=== PATIENT | male | born 1970 | race African-American/Black ===

== ENCOUNTER 2023-11-21 23:48 | Emergency (ER) | payer SELFPAY ==
[~2023-11-21] VITALS: Ht 185.4 cm; Wt 87.0 kg
[2023-11-22 00:33] LABS: BASOPHILS % 0.6 % (0.0-2.0); EOSINOPHILS % 1.4 % (0.0-5.0); HEMATOCRIT. 35.4 % (42.0-52.0); HEMOGLOBIN. 12.2 g/dL (14.0-18.0); LYMPHOCYTES % 31.3 % (20.0-50.0); MEAN CORPUSCULAR HEMOGLOBIN 32.7 pg (28.0-32.0); MEAN CORPUSCULAR HGB CONC 34.5 g/dL (31.0-37.0); MEAN CORPUSCULAR VOLUME 94.8 fL (80.0-94.0); MEAN PLATELET VOLUME 7.2 fl (7.4-10.4); MONOCYTES % 7.1 % (2.0-8.0); NEUTROPHILS % 59.6 % (40.0-76.0); PLATELET 290 x1000/uL (130-400); RED BLOOD CELL COUNT 3.73 mill/uL (4.7-6.1); RED CELL DISTRIBUTION WIDTH 13.6 % (11.6-14.6); WHITE BLOOD COUNT 8.9 x1000/uL (4.5-11.0)
[2023-11-22 00:34] LABS: CHLORIDE 108 mEq/L (98-107); POTASSIUM 3.8 mEq/L (3.5-5.1); SODIUM 139 mEq/L (136-145)
[2023-11-22 00:35] LABS: CARBON DIOXIDE 27 mEq/L (21-32)
[2023-11-22 00:40] LABS: CREATININE 1.3 mg/dL (0.6-1.3); GLUCOSE 85 mg/dL (70-105); UREA NITROGEN BLOOD 12 mg/dL (9-23)
[2023-11-22 00:41] LABS: ETHANOL BLOOD 50 mg/dL (<10)
[2023-11-22 00:42] LABS: ACETAMINOPHEN < 2 ug/mL (10-30)
[2023-11-22 00:48] VITALS: O2SAT 99
[2023-11-22] MEDS: TRAZODONE HCL 50MG TABLET PO SCH (02:15)
[2023-11-22 02:32] LABS: CLARITY URINE CLOUDY (CLEAR); COLOR URINE YELLOW (YELLOW); GLUCOSE URINE NEGATIVE (NEGATIVE); KETONES URINE TRACE (NEGATIVE); LEUKOCYTE ESTERASE URINE NEGATIVE (NEGATIVE); NITRITE URINE NEGATIVE (NEGATIVE); OCCULT BLOOD URINE NEGATIVE (NEGATIVE); PH URINE 7.5 (4.5-8.0); PROTEIN URINE NEGATIVE (NEGATIVE); SPECIFIC GRAVITY URINE 1.026 (1.005-1.030)
[2023-11-22 02:44] LABS: *AMPHETAMINES SCREEN URINE PRESUMPTIVE POSITIVE (NEGATIVE); *BARBITURATES SCREEN URINE NEGATIVE (NEGATIVE); *BENZODIAZEPINES SCREEN URINE NEGATIVE (NEGATIVE); *COCAINE SCREEN URINE PRESUMPTIVE POSITIVE (NEGATIVE); CANNABINOID URINE SCREEN PRESUMPTIVE POSITIVE (NEGATIVE); ECSTASY MDMA SCREEN URINE CONF.TEST INDICATED (NEGATIVE); METHADONE URINE SCREEN NEGATIVE (NEGATIVE); OPIATES URINE SCREEN NEGATIVE (NEGATIVE); PHENCYCLIDINE URINE SCREEN PRESUMTIVE POSITIVE (NEGATIVE)
[2023-11-22 04:07] LABS: BACTERIA URINE 1+; SQUAMOUS EPITHELIAL CELL URINE 1+ /lpf (RARE/1+); WBC URINE 0-2 /hpf (0-2)
[2023-11-23] MEDS: AMLODIPINE 5MG TABLET PO SCH (09:25)
[2023-11-23] MEDS: MELATONIN 3MG TABLET PO SCH (15:19)
[2023-11-23] MEDS: TRAZODONE HCL 50MG TABLET PO SCH (22:10)
[2023-11-23] MEDS: QUETIAPINE FUMARATE 50MG TABLET PO SCH (22:11)
[2023-11-24 14:05] VITALS: BP 136/75; PULSE 75; RESP 14; TEMP 98.7
== END 2023-11-24 14:20 ==
LOC: ER 23:48
DX: R45.851 Suicidal ideations (principal); F41.9 Anxiety disorder, unspecified; I10 Essential (primary) hypertension; F15.90 Other stimulant use, unspecified, uncomplicated
CPT/HCPCS: 99285; Z7610 ×2